=== PATIENT | male | born 1990 | race Two or more races ===

== ENCOUNTER 2025-06-21 11:36 | Emergency (ER) | payer MEDICAID, SELFPAY ==
[2025-06-21 11:38] VITALS: BMI 37.1
[2025-06-21 12:35] VITALS: BP 134/91; PULSE 104; RESP 19; TEMP 36.6; O2SAT 98; BMI 33.7
--- NOTE | 2025-06-21 12:45 | XR_ITS ---
Examination: Left wrist 2 views Technique: AP lateral left wrist 2 views Date and time: June 21, 2025, 1301 hrs. Indications: Twisting injury to the wrist today wrist pain Findings: No fracture or dislocation. No foreign body Impression: No fracture or dislocation
--- NOTE | 2025-06-21 12:46 | PD.EDHAND ---
Upper Extremity Injury RME/HPI General Chief Complaint: Hand/Wrist Problems Stated Complaint: L HAND PAIN Time Seen by Provider: 06/21/25 11:43 Arrival date/time: 06/21/25 11:36 RME / HPI RME / HPI narrative: 34-year-old male patient came in for evaluation regarding left wrist pain. Onset of symptoms about few hours prior to ER visit, patient accidentally twisted or hyper flex the right wrist while trying to stand up. Patient denies any direct trauma. Described as dull ache, severity moderate. Denies any swelling denies any other complaints no medication was taken prior to ER visit. Related Data Previous Rx's ?Medication ?Instructions ?Recorded ibuprofen 800 mg tablet 800 mg PO Q8H PRN pain #30 tabs 06/21/25 Allergies Allergy/AdvReac Type Severity Reaction Status Date / Time No Known Allergies Allergy Verified 06/21/25 11:40 Review of Systems Review of Systems Narrative Review of Systems: Review of system reviewed and within normal limits except mentioned in HPI ED Exam Narrative Physical exam: VITAL SIGNS: Reviewed. GENERAL APPEARANCE: Alert and interactive, follows commands, no acute distress, HEAD AND FACE: Non-traumatic. ENT: PERRL, pink conjunctivitis, eyelid no trauma, Mucous membrane moist. NECK: Supple, nontender, no nuchal rigidity. CHEST: No tenderness, no crepitus, no paradoxical movement, no retractions. LUNGS: Clear, well ventilated, symmetric, no rales, no wheezing, no ronchi, no stridor, good breath sounds bilaterally. HEART: Regular rate, regular rhythm, no murmur, no gallops. ABDOMEN: Soft, positive bowel sounds, nondistended, no guarding, nontender, no rebound, no masses, RECTAL: Deferred. GENITAL: Deferred. NEUROLOGICAL: Gross motor function intact sensory function intact, Appropriate for age. MUSCULOSKELETAL: low back nontender, full range of motion. EXTREMITIES: Left wrist tenderness, no redness no swelling with full range of motion. Distal neurovascular status intact SKIN: Color pink, dry, no rash, no lacerations, no abrasions, no contusions. LYMPHATICS: Deferred. Course Quality Measures none Orders Category Date Time Status XR wrist LT 2V Stat Exams 06/21/25 12:45 Completed Ibuprofen Tab [Motrin Tab] Med 06/21/25 12:46 Discontinued 800 mg PO X1 ONE Vital Signs Vital signs: Vital Signs Temperature 97.8 F 06/21/25 12:35 Pulse Rate 104 H 06/21/25 12:35 Respiratory Rate 19 06/21/25 12:35 Blood Pressure 134/91 H 06/21/25 12:35 Pulse Oximetry (%) 98 06/21/25 12:35 Oxygen Delivery Method Room Air 06/21/25 12:35 Extremity Injury MDM Narrative MDM Narrative:: 34-year-old male patient came in for evaluation regarding left wrist pain. Onset of symptoms about few hours prior to ER visit, patient accidentally twisted or hyper flex the right wrist while trying to stand up. Patient denies any direct trauma. Described as dull ache, severity moderate. Denies any swelling denies any other complaints no medication was taken prior to ER visit. X-ray of the wrist came back unremarkable. Results discussed with the patient. Lauro wrap applied to the wrist. Patient stable for discharge home Patient data External records reviewed:: None Clinical information provided by:: none Social determinants that could affect healthcare access:: none Patient has the following chronic illnesses:: None How is presenting disease/condition affected by chronic disease/condition?: no chronic disease Evaluation data The following diagnostics were reviewed and interpreted by me:: radiology exam(s) Lab and/or radiology exams considered but not ordered:: None Interpretation Summary: See results [facility] Medications / Prescriptions Medications or Prescriptions considered but not ordered:: None Medication administrations:: Medication Administration History Discontinued Medications Ibuprofen (Ibuprofen Tab 400 Mg Tablet) 800 mg PO X1 ONE Stop: 06/21/25 12:47 Last Admin: 06/21/25 13:06 Dose: 800 mg Documented By: JONH Bonilla Consultations Consultation(s) initiated? (list below): No Diagnosis Upper Extremity Injury Differential Diagnosis: sprain and strain of wrist and fracture of wrist Most likely diagnosis given after review of the tests above:: Wrist pain Admission Indicated Admission indicated?: not indicated Admission Request Was there a request for admission?: No Disposition Plan Disposition Plan: Discharge Discharge Attestation Discharge Attestation: The patient was given an opportunity to ask questions and understood the discharge instructions. Discharge instructions specifically effects, indications for sooner follow up or return to the emergency department, and the expected course of current diagnosis. Patient condition: Stable Discharge Plan Plan Patient Disposition: HOME (Self Care) Discharge Disposition comment: Stable Prescriptions/Referrals Prescriptions/Med Rec: New ibuprofen 800 mg tablet 800 mg PO Q8H PRN (Reason: pain) Qty: 30 0RF Referrals: No Primary/Family,Physician [Primary Care Provider] - In 1 week Problem List Clinical Impression: Acute wrist pain Patient/Caregiver Discharge Instructions Discharge Activity: activity as tolerated Education Materials: Medicine for Pain Additional Instructions: Thank you for the opportunity for serving you today. You are stable for discharged . You are advised to: Follow-up with your PCP in 1 to 2 days Return to ED for worsening of symptoms Increase oral fluids Take medication as prescribed Wear your wrist Lauro wrap as needed Print Language: French Stand Alone Forms: Rere Award Info., Patient Portal Info Letter PA/REFRACTORY TILE HELPER Supervising Physician PA/REFRACTORY TILE HELPER Supervising Physician: MD Zaid
[2025-06-21] MEDS: IBUPROFEN TAB 400 MG TABLET 800 MG PO (13:06)
== END 2025-06-21 16:53 | disposition home or self-care (01) ==
PROVIDERS: Emergency Provider Emergency Medicine
DX: M25.532 Pain in left wrist (principal); X50.1XXA Overexertion from prolonged static or awkward postures, initial encounter
CPT/HCPCS: 73100; 99283; A9270